=== PATIENT | male | born 1980 | race Two or more races ===

== ENCOUNTER 2021-07-08 16:33 | Inpatient (IN) | payer OTHER ==
[~2021-07-08] VITALS: Ht 177.8 cm; Wt 104.2 kg
[2021-07-08] MEDS ORDERED: fentaNYL CITRATE 100 MCG/2 ML VL IV ONE (18:15)
[2021-07-08] MEDS: MORPHINE SULFATE INJECTION 2 MG/ML SYRG IV PRN (21:07)
[2021-07-08] MEDS: ONDANSETRON HCL 4 MG/2 ML VIAL IV PRN (21:13)
[2021-07-08 22:46] LABS: Basophils # (auto) 0 10 ^3/uL (0-0.2); Basophils % (auto) 0.6 % (0.0-2.0); Eosinophils # (auto) 0.1 10 ^3/uL (0-0.8); Eosinophils % (auto) 1.5 % (0.0-7.0); Hematocrit 40.7 % (41.0-53.0); Hemoglobin 14.3 g/dL (13.5-17.5); Lymphocytes # (auto) 2.2 10 ^3/uL (0.4-5.4); Lymphocytes % (auto) 29.2 % (10.0-50.0); Mean Corpuscular Hemoglobin 28.7 pg (28.0-32.0); Mean Corpuscular Hgb Conc. 35.2 g/dL (32.0-36.0); Mean Corpuscular Volume 81.5 fL (80.0-100.0); Monocytes # (auto) 0.6 10 ^3/uL (0-1.3); Monocytes % (auto) 8.2 % (0.0-12.0); Neutrophils # (auto) 4.6 10 ^3/uL (1.6-8.6); Neutrophils % (auto) 60.5 % (37.0-80.0); Nucleated Red Blood Cells % 0.1 %; Red Blood Cells 4.99 10^6/uL (4.5-5.90); Red Cell Distribution Width 13.7 % (11.8-14.3); White Blood Cell 7.5 10^3/uL (4.4-10.8)
[2021-07-08] MEDS ORDERED: OMEP20TA PO (23:00)
[2021-07-08 23:04] LABS: Albumin 3.5 g/dL (3.4-5.0); Calcium 8.1 mg/dL (8.5-10.1); Potassium 3.5 mmol/L (3.5-5.1)
[2021-07-08 23:06] LABS: INR 1.07 (0.9-1.15); Partial Thromboplastin Time 27.7 sec (23.6-33.0)
[2021-07-08 23:10] LABS: BUN/Creatinine Ratio 9.9; Bilirubin, Total 0.5 mg/dL (0.2-1.0); Total Protein 6.6 g/dL (6.4-8.2)
[2021-07-09 08:33] VITALS: BP 125/77
[2021-07-09] MEDS: MORPHINE SULFATE INJECTION 2 MG/ML SYRG IV PRN ×3 (08:38→20:23)
[2021-07-09 11:51] LABS: Urine Bacteria NONE SEEN /hpf (None Seen); Urine Blood Negative /uL (Negative); Urine Mucus FEW (None Seen); Urine Specific Gravity 1.026 (1.001-1.035); Urine WBC 2 /hpf (0 - 3)
[2021-07-09 12:50] VITALS: BP 121/90
[2021-07-09] MEDS ORDERED: POTASSIUM CHL 20 Meq TABLET PO ONE (13:30)
[2021-07-09 16:38] VITALS: BP 127/78
[2021-07-09] MEDS: ENOXAPARIN SOD 40 MG/0.4 ML SYRINGE SC SCH (16:42)
[2021-07-09] MEDS: ONDANSETRON HCL 4 MG/2 ML VIAL IV PRN (20:24)
[2021-07-09 22:00] VITALS: BP 124/74
[2021-07-10] MEDS: MORPHINE SULFATE INJECTION 2 MG/ML SYRG IV PRN ×2 (02:29→05:38)
[2021-07-10 05:00] VITALS: BP 118/71
[2021-07-10 06:56] LABS: Potassium 4.6 mmol/L (3.5-5.1)
[2021-07-10 07:01] LABS: BUN/Creatinine Ratio 12.8; Calcium 8.6 mg/dL (8.5-10.1)
[2021-07-10] MEDS ORDERED: ceFAZolin 1GM/50ML 100 ML IV ONE (07:02)
[2021-07-10] MEDS ORDERED: BUPIVACAINE W/ EPINEPH 0.25% INJ 50ML MDV ONE (07:30)
[2021-07-10] MEDS ORDERED: fentaNYL CITRATE 5 ML ONE (08:03)
[2021-07-10] MEDS ORDERED: MIDAZOLAM HCL 2MG/2ML 2ml VIAL (1mg/ml) ONE (08:03)
[2021-07-10] MEDS ORDERED: LIDOCAINE 2% (LOCAL ANESTH.) PF 5ml SDV ONE (08:10)
[2021-07-10] MEDS ORDERED: ONDANSETRON HCL 4 MG/2 ML VIAL ONE (08:10)
[2021-07-10] MEDS ORDERED: PROPOFOL 10 MG/ML 20 ML IV ONE ×2 (08:10→09:16)
[2021-07-10] MEDS ORDERED: ROCURONIUM 10MG/ML 10ML VIAL IV ONE (08:11)
[2021-07-10] MEDS ORDERED: HYDROmorphone HCL 2 MG/ML VL IV PRN (09:00)
[2021-07-10] MEDS ORDERED: ONDANSETRON HCL 4 MG/2 ML VIAL IV PRN (09:00)
[2021-07-10] MEDS ORDERED: HYDROmorphone HCL 2 MG/ML VL ONE (09:34)
[2021-07-10] MEDS: HYDROmorphone HCL 2 MG/ML VL IV PRN ×5 (09:35→20:34)
[2021-07-10 12:00] VITALS: BP 123/82
[2021-07-10] MEDS: HYDROcodone-ACET 10/325MG TAB PO PRN ×2 (12:09→16:34)
[2021-07-10] MEDS: PANTOPRAZOLE 40 MG TAB PO SCH (12:11)
[2021-07-10] MEDS: ENOXAPARIN SOD 40 MG/0.4 ML SYRINGE SC SCH (12:12)
[2021-07-10] MEDS: ceFAZolin 2 GM in D5W 5% 100 ML IV SCH ×2 (14:00→23:36)
[2021-07-10 22:00] VITALS: BP 122/73
[2021-07-10] MEDS ORDERED: ceFAZolin 1GM VL ONE (23:21)
[2021-07-11] MEDS: HYDROmorphone HCL 2 MG/ML VL IV PRN ×3 (02:01→13:15)
[2021-07-11] MEDS: HYDROcodone-ACET 10/325MG TAB PO PRN ×3 (04:19→18:15)
[2021-07-11 04:46] VITALS: BP 122/83
[2021-07-11] MEDS: ceFAZolin 2 GM in D5W 5% 100 ML IV SCH (06:37)
[2021-07-11 08:53] VITALS: BP 130/80
[2021-07-11 09:41] LABS: Hepatitis B Surface Antibody Positive (Negative)
[2021-07-11] MEDS: ENOXAPARIN SOD 40 MG/0.4 ML SYRINGE SC SCH (10:01)
[2021-07-11] MEDS: PANTOPRAZOLE 40 MG TAB PO SCH (10:01)
[2021-07-11 10:17] LABS: Hepatitis A Total Antibody Positive (Negative)
[2021-07-11 13:00] VITALS: BP 127/77
[2021-07-11 13:16] LABS: Hepatitis C Antibody Positive (Negative)
[2021-07-11 17:00] VITALS: BP 122/86
== END 2021-07-11 19:20 | DRG 512 ==
LOC: EDBD 16:33 → ER 16:33 → EEVIPCON 16:33 → OVERFLOW 20:44 → WEST WING 22:00
PROVIDERS: ADMIT Internal Medicine; ATTEND Internal Medicine
PROC: BP1M1ZZ Fluoroscopy of Left Wrist using Low Osmolar Contrast (ICD-10-PCS; 2021-07-10)
PROC: 0PSJ04Z Reposition Left Radius with Internal Fixation Device, Open Approach (ICD-10-PCS; principal; 2021-07-10 08:04)
DX: S52.572A Other intraarticular fracture of lower end of left radius, initial encounter for closed fracture (principal); F12.90 Cannabis use, unspecified, uncomplicated; I10 Essential (primary) hypertension; K75.9 Inflammatory liver disease, unspecified; K21.9 Gastro-esophageal reflux disease without esophagitis; F41.9 Anxiety disorder, unspecified; Z20.822 Contact with and (suspected) exposure to COVID-19; W01.0XXA Fall on same level from slipping, tripping and stumbling without subsequent striking against object, initial encounter; Y92.322 Soccer field as the place of occurrence of the external cause; Y93.66 Activity, soccer; Z82.49 Family history of ischemic heart disease and other diseases of the circulatory system; Z87.11 Personal history of peptic ulcer disease; Y99.8 Other external cause status
CPT/HCPCS: 36415; 71045; 73110; 76000; 80048; 80053; 81001; 85025; 85610; 85730; 86704; 86706; 86708; 86803; 86850; 86900; 86901; 87340; 96374; G0378; J0690; J2001; J2250; J2405; J2704; J7060